=== PATIENT | female | born 1950 | race Caucasian/White ===

== ENCOUNTER 2021-09-10 15:58 | Emergency (ER) | payer MEDICARE, OTHER ==
[~2021-09-10] VITALS: Ht 160 cm; Wt 86.4 kg
[2021-09-10 16:33] VITALS: TEMP 99.2
[2021-09-10 18:24] LABS: BASO % 0.4 % (0.0-2.0); EOS # 0.1 K/mm3 (0.0-0.7); EOS % 1.3 % (0-4.0); GRAN # 5.5 K/mm3 (1.4-6.5); GRAN % 71.9 % (42.2-75.2); HEMATOCRIT 40.8 % (37.0-47.0); HEMOGLOBIN 13.4 g/dl (12.5-16.0); LYMPH # 1.4 K/mm3 (1.2-3.4); LYMPH % 18.3 % (20.0-51.0); MEAN CELL VOLUME 85 fl (80.0-100.0); MEAN CORPUSCULAR HEMOGLOBIN 28 pg (27.0-31.0); MEAN CORPUSCULAR HGB CONC 33 g/dl (33.0-37.0); MEAN PLATELET VOLUME 9.7 fl (7.4-10.4); MONO # 0.6 K/mm3 (0.1-0.6); MONO % 7.6 % (1.7-9.3); PLATELET COUNT 308 K/mm3 (130-400); RED BLOOD COUNT 4.83 M/mm3 (4.10-5.30); REDCELL DISTRIBUTION WIDTH-CV 14.6 % (11.5-14.5)
[2021-09-10 18:40] LABS: BILIRUBIN,TOTAL 0.6 mg/dL (0.2-1.2); CALCIUM 9.6 mg/dL (8.4-10.2); CREATININE, serum 0.73 mg/dL (0.57-1.11); POTASSIUM 3.8 mmol/L (3.5-4.5); TOTAL PROTEIN 8.1 gm/dL (6.2-8.1)
[2021-09-10 18:46] LABS: TROPONIN-I 0.011 ng/mL (0.00-0.033)
[2021-09-10 20:52] VITALS: BP 130/59; PULSE 81
== END 2021-09-10 20:57 | disposition home or self-care (01) ==
LOC: COL.ER 15:58
PROVIDERS: Emergency Medicine
DX: R07.89 Other chest pain (principal); R79.1 Abnormal coagulation profile; Z20.822 Contact with and (suspected) exposure to COVID-19; Z85.42 Personal history of malignant neoplasm of other parts of uterus

== ENCOUNTER 2022-01-31 13:19 | Emergency (ER) | payer MEDICARE, OTHER ==
[~2022-01-31] VITALS: Ht 160 cm; Wt 86.4 kg
[2022-01-31 13:24] VITALS: TEMP 99.1
[2022-01-31 13:53] LABS: BASO % 0.4 % (0.0-2.0); EOS # 0.1 K/mm3 (0.0-0.7); EOS % 1.6 % (0.0-4.0); GRAN # 3.8 K/mm3 (1.4-6.5); GRAN % 73.9 % (42.2-75.2); HEMOGLOBIN 12.7 g/dl (12.5-16.0); LYMPH # 0.5 K/mm3 (1.2-3.4); LYMPH % 9.4 % (20.0-51.0); MEAN CELL VOLUME 87 fl (80.0-100.0); MEAN CORPUSCULAR HEMOGLOBIN 30 pg (27-31); MEAN CORPUSCULAR HGB CONC 35 g/dl (33.0-37.0); MEAN PLATELET VOLUME 9.5 fl (7.4-10.4); MONO # 0.7 K/mm3 (0.1-0.6); MONO % 13.9 % (1.7-9.3); PLATELET COUNT 196 K/mm3 (130-400); RED BLOOD COUNT 4.22 M/mm3 (4.10-5.30); REDCELL DISTRIBUTION WIDTH-CV 13.2 % (11.5-14.5)
[2022-01-31 13:55] LABS: HEMATOCRIT 36.8 % (37.0-47.0)
[2022-01-31 14:01] LABS: INR 1.2 (0.8-3.0); PROTHROMBIN TIME 13.6 SECONDS (9.7-12.8)
[2022-01-31 14:11] LABS: ALANINE AMINOTRANSFERASE 10 U/L (0-55); ALBUMIN 3.7 gm/dL (3.4-4.8); ALKALINE PHOSPHATASE 98 U/L (40-150); ANION GAP 11 mmol/L (7-16); AST,SGOT 17 U/L (5-34); BILIRUBIN,TOTAL 0.8 mg/dL (0.2-1.2); BLOOD UREA NITROGEN 11 mg/dL (10-20); CARBON DIOXIDE 24 mmol/L (23-31); CHLORIDE 102 mmol/L (98-107); CREATININE, serum 0.77 mg/dL (0.57-1.11); GLUCOSE 119 mg/dL (70-99); SODIUM 137 mmol/L (136-145); TOTAL PROTEIN 6.9 gm/dL (6.2-8.1)
[2022-01-31 14:16] LABS: TROPONIN-I < 0.010 ng/mL (0.00-0.033)
[2022-01-31 14:50] LABS: COLLECTION METHOD CLEAN CATCH
[2022-01-31 15:04] LABS: MUCOUS Present (NOT PRESENT); PH 5 (5-8); URINE APPEARANCE Hazy (CLEAR/HAZY); URINE BACTERIA Rare /hpf (NONE SEEN); URINE BILIRUBIN Negative (NEGATIVE); URINE BLOOD Negative (NEGATIVE); URINE COLOR Amber (YELLOW); URINE GLUCOSE Negative (NEGATIVE); URINE KETONE Trace (NEGATIVE); URINE LEUKOCYTE ESTERASE Trace (NEGATIVE); URINE NITRATE Negative (NEGATIVE); URINE PROTEIN(semi-quant) 1+ (NEGATIVE); URINE UROBILINOGEN Negative (NEGATIVE)
[2022-01-31] MEDS ORDERED: DOXYCYCLINE 10100 MG PO (16:42)
[2022-01-31 17:25] VITALS: BP 121/72; PULSE 79
[2022-01-31] MEDS ORDERED: EUTHYROX125 MCG PO (17:42)
[2022-01-31] MEDS ORDERED: PROTONIX20 MG PO (17:42)
== END 2022-01-31 17:25 | disposition home or self-care (01) ==
LOC: COL.ER 13:19
PROVIDERS: Nurse Practitioner Primary Care
DX: J18.9 Pneumonia, unspecified organism (principal); Z88.1 Allergy status to other antibiotic agents
CPT/HCPCS: J0696; Q9967

== ENCOUNTER 2022-03-07 11:33 | Emergency (ER) | payer MEDICARE, OTHER ==
[~2022-03-07] VITALS: Ht 160 cm; Wt 84.1 kg
[~2022-03-07 11:33] MED LIST: DOXYCYCLINE 10100 MG PO; EUTHYROX125 MCG PO; PROTONIX20 MG PO
[2022-03-07 11:35] VITALS: TEMP 97.9
[2022-03-07 13:06] LABS: BASO % 0.6 % (0.0-2.0); EOS # 0.1 K/mm3 (0.0-0.7); EOS % 2.2 % (0.0-4.0); GRAN # 3.8 K/mm3 (1.4-6.5); GRAN % 77.3 % (42.2-75.2); HEMOGLOBIN 11.4 g/dl (12.5-16.0); LYMPH # 0.4 K/mm3 (1.2-3.4); MEAN CELL VOLUME 90 fl (80.0-100.0); MEAN CORPUSCULAR HEMOGLOBIN 30 pg (27-31); MEAN CORPUSCULAR HGB CONC 33 g/dl (33.0-37.0); MEAN PLATELET VOLUME 9.6 fl (7.4-10.4); MONO # 0.5 K/mm3 (0.1-0.6); MONO % 10.9 % (1.7-9.3); PLATELET COUNT 218 K/mm3 (130-400); RED BLOOD COUNT 3.82 M/mm3 (4.10-5.30); REDCELL DISTRIBUTION WIDTH-CV 13.5 % (11.5-14.5)
[2022-03-07 13:10] LABS: HEMATOCRIT 34.5 % (37.0-47.0)
[2022-03-07 13:22] LABS: ALANINE AMINOTRANSFERASE 9 U/L (0-55); ALKALINE PHOSPHATASE 79 U/L (40-150); ANION GAP 11 mmol/L (7-16); AST,SGOT 14 U/L (5-34); BILIRUBIN,TOTAL 0.8 mg/dL (0.2-1.2); BLOOD UREA NITROGEN 13 mg/dL (10-20); CALCIUM 8.4 mg/dL (8.4-10.2); CARBON DIOXIDE 24 mmol/L (23-31); CHLORIDE 104 mmol/L (98-107); CREATININE, serum 0.71 mg/dL (0.57-1.11); GLUCOSE 104 mg/dL (70-99); POTASSIUM 4.2 mmol/L (3.5-4.5); SODIUM 139 mmol/L (136-145); TOTAL PROTEIN 6.3 gm/dL (6.2-8.1)
[2022-03-07 13:29] LABS: TROPONIN-I < 0.010 ng/mL (0.00-0.033)
[2022-03-07 13:43] LABS: COLLECTION METHOD CLEAN CATCH
[2022-03-07 14:22] LABS: MUCOUS Present (NOT PRESENT); PH 5 (5-8); URINE APPEARANCE Cloudy (CLEAR/HAZY); URINE BACTERIA None Seen /hpf (NONE SEEN); URINE BILIRUBIN Negative (NEGATIVE); URINE BLOOD Negative (NEGATIVE); URINE COLOR Amber (YELLOW); URINE GLUCOSE Negative (NEGATIVE); URINE KETONE Negative (NEGATIVE); URINE LEUKOCYTE ESTERASE Trace (NEGATIVE); URINE NITRATE Negative (NEGATIVE); URINE PROTEIN(semi-quant) Negative (NEGATIVE); URINE RBC 0-2 /hpf (0-2); URINE UROBILINOGEN Negative (NEGATIVE)
[2022-03-07] MEDS ORDERED: DOXYCYCLINE 10100 MG PO (18:48)
[2022-03-07 18:59] VITALS: BP 121/67; PULSE 82
== END 2022-03-07 19:12 | disposition home or self-care (01) ==
LOC: COL.ER 11:33
PROVIDERS: Nurse Practitioner Family
DX: R55 Syncope and collapse (principal); C54.1 Malignant neoplasm of endometrium; C78.01 Secondary malignant neoplasm of right lung; Z20.822 Contact with and (suspected) exposure to COVID-19; Z88.1 Allergy status to other antibiotic agents; Z28.310 Unvaccinated for COVID-19
CPT/HCPCS: J7030; Q9967

== ENCOUNTER 2022-03-21 09:25 | Observation (INO) | payer MEDICARE, OTHER ==
[~2022-03-21] VITALS: Ht 160 cm; Wt 91.0 kg
[2022-03-21 10:04] LABS: BASO % 0.7 % (0.0-2.0); EOS # 0.1 K/mm3 (0.0-0.7); EOS % 2.8 % (0.0-4.0); GRAN # 3.1 K/mm3 (1.4-6.5); GRAN % 70.4 % (42.2-75.2); LYMPH # 0.5 K/mm3 (1.2-3.4); LYMPH % 10.9 % (20.0-51.0); MEAN CELL VOLUME 86 fl (80.0-100.0); MEAN CORPUSCULAR HEMOGLOBIN 30 pg (27-31); MEAN CORPUSCULAR HGB CONC 35 g/dl (33.0-37.0); MEAN PLATELET VOLUME 9.8 fl (7.4-10.4); MONO # 0.7 K/mm3 (0.1-0.6); PLATELET COUNT 220 K/mm3 (130-400); RED BLOOD COUNT 4.06 M/mm3 (4.10-5.30); REDCELL DISTRIBUTION WIDTH-CV 13.4 % (11.5-14.5)
[2022-03-21 10:08] LABS: HEMATOCRIT 34.8 % (37.0-47.0)
[2022-03-21 10:19] LABS: ALANINE AMINOTRANSFERASE 8 U/L (0-55); ALKALINE PHOSPHATASE 91 U/L (40-150); ANION GAP 10 mmol/L (7-16); AST,SGOT 15 U/L (5-34); BILIRUBIN,TOTAL 0.5 mg/dL (0.2-1.2); BLOOD UREA NITROGEN 7 mg/dL (10-20); CARBON DIOXIDE 25 mmol/L (23-31); CHLORIDE 103 mmol/L (98-107); CREATININE, serum 0.61 mg/dL (0.57-1.11); GLUCOSE 112 mg/dL (70-99); POTASSIUM 3.8 mmol/L (3.5-4.5); SODIUM 138 mmol/L (136-145); TOTAL PROTEIN 6.5 gm/dL (6.2-8.1)
[2022-03-21 10:29] LABS: TROPONIN-I < 0.010 ng/mL (0.00-0.033)
[2022-03-21 10:35] LABS: MAGNESIUM 2.1 mg/dL (1.6-2.6); PHOSPHOROUS 3.1 mg/dL (2.3-4.7)
[2022-03-21 10:44] LABS: COLLECTION METHOD CLEAN CATCH
[2022-03-21 10:55] LABS: TSH w REFLEX 0.834 uIU/mL (0.350-4.940)
[2022-03-21 11:01] LABS: MUCOUS Present (NOT PRESENT); PH 8 (5-8); URINE APPEARANCE Cloudy (CLEAR/HAZY); URINE BACTERIA Rare /hpf (NONE SEEN); URINE BILIRUBIN Negative (NEGATIVE); URINE BLOOD Negative (NEGATIVE); URINE COLOR Yellow (YELLOW); URINE GLUCOSE Negative (NEGATIVE); URINE KETONE Negative (NEGATIVE); URINE LEUKOCYTE ESTERASE Negative (NEGATIVE); URINE NITRATE Negative (NEGATIVE); URINE PROTEIN(semi-quant) Negative (NEGATIVE); URINE RBC 0-2 /hpf (0-2); URINE UROBILINOGEN Negative (NEGATIVE)
[2022-03-21] MEDS ORDERED: SYNTHROID0.125 MG/T PO (11:26)
[2022-03-21 12:17] VITALS: BP 125/60; PULSE 31; TEMP 98.9
--- NOTE | 2022-03-21 13:16 | NUR ---
PICC canceled by Dr. Kessler. wrong patient.
[2022-03-21 15:03] VITALS: BP 102/65; PULSE 60; TEMP 98.7
--- NOTE | 2022-03-21 17:10 | NUR ---
Patient arrived from ED on cardizem gtt, it was DC'd and made PO. Patient tolerating medication well. Patient denying any concerns so far. Patient is A&Ox4 and steady on her feet. Assisted to the bathroom the first 2x just for patient safety d/t diagnosis, and patient did well. All admission assessments completed.
[2022-03-21 20:48] VITALS: BP 103/53; PULSE 88; TEMP 98.4
[2022-03-22 00:43] VITALS: BP 107/60; PULSE 77; TEMP 97.6
[2022-03-22 04:10] VITALS: BP 105/57; PULSE 76; TEMP 98.2
--- NOTE | 2022-03-22 06:00 | NUR ---
ASSESSMENT COMPLETE FOR THIS SHIFT. PT RESTING IN BED NAPPING. PT DENIED GENERAL PAIN, CHEST PAIN, PALPITATIONS, N,V,D, SOB OR DIZZINESS. PT COMPLAINED OF EXCESSIVE COUGH AND PHLEGM AND WANTED SOMETHING TO HELP WITH THAT. HOSPITALIST CALLED. CLARITIN, TESSALON AND MUCINEX ORDERED. CLARITIN GIVEN. PT FELT THE CLARITIN WAS EFFECTIVE. PT ALSO COMPLAINED OF HER INT TO RW HURTING. NEW INT SITE PLACED TO THE LF. PT EXPRESSED NO OTHER NEEDS AT THIS TIME. CALL LIGHT WITHIN REACH.
[2022-03-22 07:32] LABS: BASO % 0.8 % (0.0-2.0); EOS # 0.2 K/mm3 (0.0-0.7); EOS % 4.8 % (0.0-4.0); GRAN # 2.3 K/mm3 (1.4-6.5); GRAN % 62.8 % (42.2-75.2); HEMOGLOBIN 10.3 g/dl (12.5-16.0); LYMPH # 0.5 K/mm3 (1.2-3.4); LYMPH % 12.9 % (20.0-51.0); MEAN CELL VOLUME 90 fl (80.0-100.0); MEAN CORPUSCULAR HEMOGLOBIN 29 pg (27-31); MEAN CORPUSCULAR HGB CONC 32 g/dl (33.0-37.0); MEAN PLATELET VOLUME 10.3 fl (7.4-10.4); MONO # 0.7 K/mm3 (0.1-0.6); MONO % 18.2 % (1.7-9.3); PLATELET COUNT 205 K/mm3 (130-400); RED BLOOD COUNT 3.57 M/mm3 (4.10-5.30); REDCELL DISTRIBUTION WIDTH-CV 13.6 % (11.5-14.5)
[2022-03-22 07:39] VITALS: BP 117/42; PULSE 80; TEMP 98.4
[2022-03-22 07:51] LABS: ALBUMIN 2.7 gm/dL (3.4-4.8); CALCIUM 8.8 mg/dL (8.4-10.2); CREATININE, serum 0.6 mg/dL (0.57-1.11); MAGNESIUM 2.2 mg/dL (1.6-2.6); PHOSPHOROUS 3.8 mg/dL (2.3-4.7); POTASSIUM 3.7 mmol/L (3.5-4.5)
--- NOTE | 2022-03-22 09:08 | NUR ---
PT RESTING IN BED. MORNING MEDICATIONS GIVEN. SHIFT ASSESSMENT COMPLETED. PT DENIES ANY PAIN OR NEEDS AT THIS TIME. WILL CONTINUE TO MONITOR.
[2022-03-22 11:42] VITALS: BP 107/57; PULSE 76; TEMP 98.6
[2022-03-22] MEDS ORDERED: TESSALON P100 MG/CAP PO (11:57)
[2022-03-22] MEDS ORDERED: CARDIZEM CD 18180 MG PO (11:57)
[2022-03-22] MEDS ORDERED: MUCUS RELIEF400 M1 PO (11:58)
--- NOTE | 2022-03-22 15:22 | NUR ---
TELE D/C. IV D/C. DISCHARGE INSTRUCTIONS GIVEN, ALL QUESTIONS ANSWERED. PT ESCORTED DOWN WITH FRIEND. WILL D/C FROM SYSTEM.
== END 2022-03-22 15:30 | disposition home or self-care (01) ==
LOC: COL.ER 09:25 → MEDICAL 11:07
PROVIDERS: Emergency Medicine; ADMIT Internal Medicine
DX: C54.1 Malignant neoplasm of endometrium (principal); C78.00 Secondary malignant neoplasm of unspecified lung; Z85.850 Personal history of malignant neoplasm of thyroid; K21.9 Gastro-esophageal reflux disease without esophagitis; I07.1 Rheumatic tricuspid insufficiency
CPT/HCPCS: G0378

== ENCOUNTER → 2022-05-05 | Outpatient (CLI) | payer MEDICARE, OTHER ==
[~2022-05-05] MED LIST changes: +CARDIZEM CD 18180 MG PO; +MUCUS RELIEF400 M1 PO; +SYNTHROID0.125 MG/T PO; +TESSALON P100 MG/CAP PO
== END ==
LOC: COL.RAD 07:38
DX: C54.1 Malignant neoplasm of endometrium (principal); C78.00 Secondary malignant neoplasm of unspecified lung; K76.0 Fatty (change of) liver, not elsewhere classified; K80.20 Calculus of gallbladder without cholecystitis without obstruction; J90 Pleural effusion, not elsewhere classified; M48.56XA Collapsed vertebra, not elsewhere classified, lumbar region, initial encounter for fracture
CPT/HCPCS: Q9967

== ENCOUNTER 2022-06-10 13:55 | Emergency (ER) | payer MEDICARE, OTHER ==
[~2022-06-10] VITALS: Ht 160 cm; Wt 77.3 kg
[2022-06-10 13:58] VITALS: TEMP 98
[2022-06-10 14:36] LABS: BASO % 0.5 % (0.0-2.0); EOS # 0.1 K/mm3 (0.0-0.7); EOS % 1.5 % (0.0-4.0); GRAN % 68.2 % (42.2-75.2); HEMOGLOBIN 11.6 g/dl (12.5-16.0); LYMPH % 17.5 % (20.0-51.0); MEAN CELL VOLUME 81 fl (80.0-100.0); MEAN CORPUSCULAR HEMOGLOBIN 27 pg (27-31); MEAN CORPUSCULAR HGB CONC 33 g/dl (33.0-37.0); MEAN PLATELET VOLUME 9.7 fl (7.4-10.4); MONO # 0.7 K/mm3 (0.1-0.6); PLATELET COUNT 322 K/mm3 (130-400); REDCELL DISTRIBUTION WIDTH-CV 14.5 % (11.5-14.5)
[2022-06-10 14:38] LABS: HEMATOCRIT 34.9 % (37.0-47.0)
[2022-06-10 14:44] LABS: INR 1.2 (0.8-3.0)
[2022-06-10 14:47] LABS: PARTIAL THROMBOPLASTIN TIME 33.2 SECONDS (26.0-37.0)
[2022-06-10 14:57] LABS: ALANINE AMINOTRANSFERASE 6 U/L (0-55); ALBUMIN 2.9 gm/dL (3.4-4.8); ALKALINE PHOSPHATASE 97 U/L (40-150); ANION GAP 10 mmol/L (7-16); AST,SGOT 14 U/L (5-34); BILIRUBIN,TOTAL 0.5 mg/dL (0.2-1.2); BLOOD UREA NITROGEN 9 mg/dL (10-20); C-REACTIVE PROTEIN 7.34 mg/dL (0.00-0.50); CALCIUM 9.7 mg/dL (8.4-10.2); CARBON DIOXIDE 24 mmol/L (23-31); CHLORIDE 104 mmol/L (98-107); CREATINE KINASE 19 U/L (29-168); CREATININE, serum 0.64 mg/dL (0.57-1.11); GLUCOSE 100 mg/dL (70-99); POTASSIUM 3.7 mmol/L (3.5-4.5); SODIUM 138 mmol/L (136-145); TOTAL PROTEIN 6.6 gm/dL (6.2-8.1)
[2022-06-10 15:05] LABS: TROPONIN-I < 0.010 ng/mL (0.00-0.033)
[2022-06-10 15:44] LABS: COLLECTION METHOD CLEAN CATCH
[2022-06-10 15:56] LABS: MUCOUS Present (NOT PRESENT); SQUAMOUS EPITHELIAL 0-2 /hpf (0-10); URINE BACTERIA None Seen /hpf (NONE SEEN); URINE RBC 0-2 /hpf (0-2)
[2022-06-10 15:57] LABS: URINE COLOR Yellow (YELLOW)
[2022-06-10 15:58] LABS: URINE APPEARANCE Clear (CLEAR/HAZY); URINE GLUCOSE 1+ (NEGATIVE); URINE KETONE 1+ (NEGATIVE); URINE NITRATE Negative (NEGATIVE); URINE PROTEIN(semi-quant) 1+ (NEGATIVE); URINE UROBILINOGEN 0.2 E.U/dL (0.2-1.0)
[2022-06-10 15:59] LABS: URINE BLOOD TRACE-INTACT (NEGATIVE)
[2022-06-10] MEDS ORDERED: ATIVAN 0.50.5 MG/TAB PO (16:06)
--- NOTE | 2022-06-10 16:15 | NUR ---
metal storage worker met with patient to assess for needs and discuss discharge planning. Patient states she is single and does not have children. Patient states that her two physician's, Dr Mattson and Dr Roberto Rhodes both recommned Palliative care/hospice. Worker provided Medicare.gov share for hospice and patient chose [facility]. Patient states that she will move in with her friends in [place], [place]. Emiliano Whitaker: [phone] [address], [place] and has left a message that she needs to move sooner than in 1-2 weeks, as previously planned. Worker gave a referral to Leola at [facility]. Leola will contact patient and Ester. Worker collaborated with emergency room nurse and provider regarding the above information. Patient plans to return home from the emergency room. Worker left message with Dr Mattson's pediatric social worker to discuss above information.
[2022-06-10 16:59] VITALS: BP 103/70; PULSE 88
--- NOTE | 2022-06-11 13:30 | NUR ---
quality worker faxed emergency room physician notes to [facility]. Worker contacted Cris medical social worker at Dr Mattson's office and advised of previous work completed. Cris stated they will contact patient now and assist with continuation of hospice care plans.
== END 2022-06-10 17:01 | disposition home or self-care (01) ==
LOC: COL.ER 13:55
PROVIDERS: Emergency Medicine
DX: C54.1 Malignant neoplasm of endometrium (principal); R06.00 Dyspnea, unspecified; R04.2 Hemoptysis; R53.1 Weakness
CPT/HCPCS: J2405; J7030